=== PATIENT | female | born 2000 | race African-American/Black ===

== ENCOUNTER 2019-03-14 11:07 | Emergency (ER) | payer SELFPAY ==
[~2019-03-14] VITALS: Ht 175.3 cm; Wt 57.0 kg
[2019-03-14] MEDS ORDERED: IBUPROFEN 600MG TABLET PO STA (11:34)
[2019-03-14 12:56] VITALS: BP 125/79
== END 2019-03-14 12:57 | disposition home or self-care (01) ==
LOC: ER 11:07
DX: M54.2 Cervicalgia (principal); M25.551 Pain in right hip; Z88.2 Allergy status to sulfonamides; V43.52XA Car driver injured in collision with other type car in traffic accident, initial encounter; Y93.89 Activity, other specified; Y92.488 Other paved roadways as the place of occurrence of the external cause
CPT/HCPCS: 72170; 81025; 99283